=== PATIENT | male | born 1985 | race Caucasian/White ===

== ENCOUNTER → 2016-08-25 | Outpatient (CLI) | payer OTHER | END | disposition home or self-care (01) | LOC: RAD.S 14:30 | PROC: 3E0S3BZ Introduction of Anesthetic Agent into Epidural Space, Percutaneous Approach (ICD-10-PCS; principal; 2016-08-25) | PROC: 3E0S33Z Introduction of Anti-inflammatory into Epidural Space, Percutaneous Approach (ICD-10-PCS; principal; 2016-08-25) | DX: M54.5 Low back pain (principal); M51.36 Other intervertebral disc degeneration, lumbar region; F32.9 Major depressive disorder, single episode, unspecified ==